=== PATIENT | male | born 1955 | race Caucasian/White ===

== ENCOUNTER → 2017-04-26 | Outpatient (CLI) | payer OTHER ==
[~2017-04-26] MED LIST: ASPEC81 PO; HYDC25 PO; METO25TA3 PO; PRLSR20 PO
[2017-04-26 18:08] LABS: BLOOD UREA NITROGEN 8 mg/dl (7-18); BUN/CREATININE RATIO 8.1 (10-20); CALCIUM 9.6 mg/dl (8.5-10.1); CARBON DIOXIDE 28 mmol/L (21-32); CHLORIDE 106 mmol/L (98-107); CREATININE 0.99 mg/dl (0.60-1.40); GLUCOSE 125 mg/dl (70-99); POTASSIUM 3.4 mmol/L (3.5-5.1); SODIUM 142 mmol/L (136-145)
[2017-04-26 18:11] LABS: CHOLESTEROL 117 mg/dl (0-200); CHOLESTEROL/HDL RATIO 2.1; HDL CHOLESTEROL 56 mg/dl; LDL CHOLESTEROL CALCULATED 44 mg/dl; TRIGLYCERIDES 87 mg/dl (0-150); VERY LOW DENSITY LIPOPROT CALC 17 mg/dl
== END | disposition home or self-care (01) ==
LOC: C.LABPVFM 15:24
PROVIDERS: ATTEND Nurse Practitioner
DX: E78.5 Hyperlipidemia, unspecified (principal); I10 Essential (primary) hypertension

== ENCOUNTER → 2018-02-07 | Outpatient (CLI) | payer OTHER ==
[2018-02-07 17:41] LABS: ALBUMIN 3.8 gm/dl (3.4-5.0); ALT/SGPT 33 U/L (12-78); AST/SGOT 24 U/L (15-37); BLOOD UREA NITROGEN 12 mg/dl (7-18); CALCIUM 9.3 mg/dl (8.5-10.1); CARBON DIOXIDE 29 mmol/L (21-32); CREATININE 1.07 mg/dl (0.60-1.40); GLUCOSE 87 mg/dl (70-99); POTASSIUM 3.7 mmol/L (3.5-5.1); SODIUM 135 mmol/L (136-145)
[2018-02-07 17:44] LABS: ALKALINE PHOSPHATASE 75 U/L (45-117); CHOLESTEROL 135 mg/dl (0-200); LDL CHOLESTEROL CALCULATED 58 mg/dl; TOTAL PROTEIN 7.7 gm/dl (6.4-8.2)
== END | disposition home or self-care (01) ==
LOC: C.LABPVFM 13:32
PROVIDERS: ATTEND Nurse Practitioner
DX: E78.5 Hyperlipidemia, unspecified (principal); K76.0 Fatty (change of) liver, not elsewhere classified; R74.0 Nonspecific elevation of levels of transaminase and lactic acid dehydrogenase [LDH]

== ENCOUNTER 2025-06-19 02:44 | Inpatient (IN) ==
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
[2025-06-19] MEDS: ACETAMINOPHEN 1,000 MG/100 ML VIAL IV STA (03:45)
[2025-06-19] MEDS: FAMOTIDINE 20MG IV PUSH 20 MG/5 ML SYR IV STA (03:46)
[2025-06-19] MEDS: SODIUM CHLORIDE 0.9% 1,000 ML IV ONE (03:46)
[2025-06-19] MEDS: ONDANSETRON INJ 2 MG/ML 2 ML VIAL IV STA (03:46)
--- NOTE | 2025-06-19 04:14 | XRay Report ---
EXAM: XR chest 1V portable CLINICAL HISTORY: abd pain TECHNIQUE: Radiograph of chest was acquired. COMPARISON: and CT dated 02/24/2025 FINDINGS: Interval stable right basal atelectasis band- seen in CT dated Feb 24 2025 Rest of the lungs are clear and well-expanded with no pulmonary infiltrate or pleural effusion. The cardiomediastinal silhouette is within normal limits. No acute osseous abnormality. IMPRESSION: 1. No acute cardiopulmonary disease. 2. Interval stable right basal atelectasis band- seen in CT dated Feb 24 2025 3. No new findings Electronically signed by Haile Prado 06-19-2025 04:14 AM
[2025-06-19 04:18] LABS: Hematocrit (blood only) 44.4 % (42.0-52.0); Hemoglobin 15.2 g/dl (14.0-18.0); Mean Corpuscular Hemoglobin 30.5 pg (25.0-34.0); Mean Corpuscular Volume 89.2 fL (80.0-100.0); Platelet Count 220 K/uL (130-400); RDW Standard Deviation 43.6 fL (36.4-46.3); Red Blood Count 4.98 M/uL (4.70-6.10); White Blood Count 12.42 K/ul (4.8-10.8)
[2025-06-19 04:46] LABS: Immature Granulocytes # (auto) 0.04 K/uL (0.01-0.20); Immature Granulocytes % (auto) 0.3 %
[2025-06-19 04:53] LABS: INR 1.0 (0.9-1.1); Prothrombin Time 11.3 Seconds (9.0-12.0)
[2025-06-19 04:55] LABS: Alanine Aminotransferase 138.0 U/L (7-52); Alkaline Phosphatase 116.0 U/L (34-104); Blood Urea Nitrogen 25.0 mg/dl (6-23); Calcium 9.6 mg/dl (8.6-10.3); Carbon Dioxide 23.0 mmol/L (21-32); Chloride 102.0 mmol/L (98-107); Creatinine Clr Calc Pharmacy 57.1 ml/min
[2025-06-19 05:15] LABS: Anion Gap 11.0 (3-11); Bilirubin,Total 3.5 mg/dl (0.2-1.0); Potassium 3.7 mmol/L (3.5-5.1); Sodium 136.0 mmol/L (136-145)
[2025-06-19] MEDS: DICYCLOMINE HCL 10 MG/ML 2 ML AMP/VIAL IM ONE (05:17)
[2025-06-19 05:21] LABS: Albumin Globulin Ratio 1.1 (0.9-2); Globulin 3.8 gm/dl (2.5-4.0); Glucose 137.0 mg/dl (70-99(Fasting)); Lipase 20.0 U/L (11-82); Total Protein 7.9 gm/dl (6.0-8.3)
--- NOTE | 2025-06-19 06:01 | CT Scan Report ---
EXAM: CT abd pelvis wo con CLINICAL HISTORY: abd pain, n/v TECHNIQUE: Contiguous axial images were obtained from the level of the diaphragm to the pubic symphysis without intravenous or oral contrast. Coronal and sagittal reconstructions were likewise performed and indicated to increase the sensitivity for detecting clinically relevant pathology. CT scan was performed according to ALARA (as low as reasonable achievable). COMPARISON: None. FINDINGS: The visualized lung bases are clear. Evaluation of the abdominal and pelvic visceral organs is limited without intravenous contrast. The unenhanced liver, spleen, pancreas, and adrenal glands are grossly unremarkable. The gallbladder is grossly distended without obvious radio-opaque calculus - USG correlation suggested . The kidneys are normal in size and attenuation without obvious calcification. There is no hydronephrosis Mild bilateral perinephric fat stranding. The ureters are normal in caliber. The urinary bladder is normal in contour. Pelvic viscera are grossly unremarkable. No adenopathy or fluid collections are seen. No evidence of focal or diffuse bowel wall thickening or evidence of bowel obstruction is seen. Multiple small uncomplicated sigmoid colonic diverticulosis. Diffuse atherosclerotic calcification is noted involving aorta iliac arteries. The aorta is normal in caliber. No aggressive appearing osseous lesions are identified. IMPRESSION: 1. Mild bilateral perinephric fat stranding. 2. Multiple small uncomplicated sigmoid colonic diverticulosis. 3. The gallbladder is grossly distended without obvious radio-opaque calculus - USG correlation suggested Electronically signed by Haile Prado 06-19-2025 06:01 AM
[2025-06-19] MEDS: MoRPHine SULFATE 10 MG/ML CARP/VIAL IV STA (06:38)
[2025-06-19] MEDS: METOCLOPRAMIDE HCL INJ 5 MG/ML 2 ML VIAL IV ONE (06:38)
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
[2025-06-19] MEDS ORDERED: cefTRIAXone SODIUM 1,000 MG/50 ML BAG IV SCH (07:30)
[2025-06-19] MEDS: LACTATED RINGER'S 1,000 ML IV SCH (08:40)
--- NOTE | 2025-06-19 09:04 | Magnetic Resonance Report ---
MRCP CLINICAL HISTORY: Generalized abdominal pain. Elevated hepatic transaminases. COMPARISON STUDY: Abdominal CT dated 06/19/2025. TECHNIQUE: Abdominal MRCP is performed utilizing various T2-weighted sequences in the axial and coron al planes. 3-D reformats were created and assessed. Diffusion-weighted imaging was utilized. IV contr ast was not administered for this examination. FINDINGS: The gallbladder is distended and contains numerous layering stones. The gallbladder wall is mildly th ickened and there is pericholecystic inflammation. Findings are consistent with acute cholecystitis. There is [id number] intrahepatic biliary duct dilatation. The common bile duct is dilated, joshua uring up to 1.6 cm diameter. There are numerous stones in the distal common bile duct which measure u p to 8 mm. The pancreatic duct is normal in caliber. The unenhanced liver, spleen, pancreas, adrenal glands, and kidneys are grossly unremarkable. The abd ominal aorta is normal in caliber. Imaged portions of the bowel show no evidence of obstruction. Ther e is no upper abdominal lymphadenopathy. No ascites is seen. There is a small hiatal hernia. The hear t is normal in size and without pericardial effusion. No pleural effusion is identified. There is no evidence of destructive bony lesion. IMPRESSION: Cholelithiasis and choledocholithiasis with evidence of acute cholecystitis. Electronically signed by: Randall Wheeler M.D. 06/19/2025 9:03 AM
[2025-06-19] MEDS: cefTRIAXone SODIUM 2,000 MG/50 ML BAG IV SCH (09:45)
[2025-06-19] MEDS: metroNIDAZOLE 500 MG/100 ML BAG IV SCH (09:45)
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
[2025-06-19 10:42] LABS: Hematocrit (blood only) 38.6 % (42.0-52.0); Hemoglobin 13.2 g/dl (14.0-18.0); Mean Corpuscular Hemoglobin 30.3 pg (25.0-34.0); Mean Corpuscular Volume 88.5 fL (80.0-100.0); Platelet Count 193 K/uL (130-400); RDW Standard Deviation 43.8 fL (36.4-46.3); Red Blood Count 4.36 M/uL (4.70-6.10); White Blood Count 16.87 K/ul (4.8-10.8)
[2025-06-19 11:02] LABS: Alanine Aminotransferase 135.0 U/L (7-52); Albumin Globulin Ratio 1.2 (0.9-2); Alkaline Phosphatase 97.0 U/L (34-104); Anion Gap 7.0 (3-11); Bilirubin,Total 5.5 mg/dl (0.2-1.0); Blood Urea Nitrogen 26.0 mg/dl (6-23); Calcium 9.2 mg/dl (8.6-10.3); Carbon Dioxide 26.0 mmol/L (21-32); Chloride 104.0 mmol/L (98-107); Creatinine Clr Calc Pharmacy 56.3 ml/min; Globulin 3.1 gm/dl (2.5-4.0); Glucose 133.0 mg/dl (70-99(Fasting)); Potassium 3.9 mmol/L (3.5-5.1); Sodium 137.0 mmol/L (136-145); Total Protein 6.8 gm/dl (6.0-8.3)
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
[2025-06-19 13:31] LABS: Appearance Urine Clear (Clear); Bacteria Urine Automated None Seen (None Seen); Glucose Urine UA Negative (Negative); RBC Urine Automated 0-2 /hpf (0-2); WBC Urine Automated 0-5 /hpf (0-5)
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
--- NOTE | 2025-06-19 14:18 | Electrocardiogram Report ---
Test Reason : Blood Pressure : */* mmHG Vent. Rate : 77 BPM Atrial Rate : 77 BPM P-R Int : 150 ms QRS Dur : 78 ms QT Int : 384 ms P-R-T Axes : -24 -9 -26 degrees QTcB Int : 434 ms Normal sinus rhythm Inferior infarct , age undetermined Abnormal ECG When compared with ECG of 24-Oct-2018 01:15, Inferior infarct is now Present T wave inversion now evident in Inferior leads Confirmed by Marlo Abarca ([id number]) on 06/19/2025 2:18:45 PM Referred By: REFERRED SELF Confirmed By: Marlo Abarca
[2025-06-19] MEDS ORDERED: PROPOFOL IV EMULSION 10 MG/ML 20 ML VIAL IV ONE (16:46)
[2025-06-19] MEDS ORDERED: LIDOCAINE 2% 2 ML VIAL/AMP(20MG/ML) INFIL ONE (16:46)
[2025-06-19] MEDS ORDERED: ONDANSETRON INJ 2 MG/ML 2 ML VIAL ONE (16:46)
[2025-06-19] MEDS ORDERED: SUCCINYLCHOLINE CHLORIDE 20 MG/ML 10 ML VIAL IV ONE (16:46)
[2025-06-19] MEDS ORDERED: ATROPINE SULFATE 0.1 MG/ML 10ML SYR IV PRN (17:04)
[2025-06-19] MEDS ORDERED: ONDANSETRON INJ 2 MG/ML 2 ML VIAL IV PRN (17:04)
[2025-06-19] MEDS ORDERED: PROMETHAZINE HCL 6.25 MG in SODIUM CHLORIDE 0.9% 50 ML IV PRN (17:04)
[2025-06-19] MEDS ORDERED: ePHEDrine sulfate 50 MG/5 ML SYR ONE (18:34)
[2025-06-19] MEDS ORDERED: PHENYLEPHRINE 100MCG/ML 5ML SYR ONE (18:34)
[2025-06-19] MEDS ORDERED: ROCURONIUM BROMIDE 10 MG/ML 5 ML VIAL IV ONE (18:34)
[2025-06-19] MEDS ORDERED: SUGAMMADEX SODIUM 200 MG/2 ML VIAL IV ONE (18:34)
--- NOTE | 2025-06-19 18:43 | Communication Note ---
Date of Service: June 19, 2025 ERCP sphincterotomy and stone extraction Ulcerated the papilla. Draining bile. Initial cannulation markedly dilated common bile duct. Multiple filling defects within the common hepatic duct. Biliary sphincterotomy undertaken through a long intraduodenal bile duct. Once flush of bile was seen further sphincterotomy ceased. Based on the size of the filling defects we felt that additional balloon sphincterotomy would facilitate extraction the duct was dilated to 1 cm with a balloon dilator. An 8-15 balloon was inserted into the proximal biliary tree and the duct was swept. At least 4 to 5 stones were extracted from the biliary system. The duct then was swept on 3 more occasions with extraction of mostly pus and some debris. Duct was clear and draining well opposed. Patient tolerated procedure well. Multiple common duct stones. Dilated biliary system. Pus in the biliary system consistent with cholangitis. Clear liquids today. Continue IV antibiotics. Labs in the AM. Cholecystectomy with timing per surgery
[2025-06-19] MEDS: INDOMETHACIN 50 MG SUPP PR ONE ×2 (18:50→21:26)
--- NOTE | 2025-06-19 18:50 | GI REPORT ---
Patient: АЛЕКСАНДР FIGUEROA : 1955 Sex at : Male Age: 69 Years Procedure: ERCP Date: 06/19/2025 Attending Physician: Eleuterio Knox MD Referring MD: Referred Self Indications: - Bile duct stone(s) - Elevated liver enzymes Medications: - General Anesthesia - Indomethacin 100 mg NH Complications: - No immediate complications. Estimated Blood Loss: - Estimated blood loss was minimal. Procedure: - The ercp scope was introduced through the mouth and advanced to the duodenum and used to inject contrast into the bile duct. - The ERCP was accomplished without difficulty. - The patient tolerated the procedure well. Findings: - Scope advanced fairly easily to the second part of the duodenum and the papilla appeared ulcerated. Initial cannulation decannulation of common bile duct. Long intra duodenal biliary portion. Large stones. Sphincterotomy extended in the 11 o'clock position until gush of bile further cutting ceased after that. Based on stone size the decision was made to do a 1 cm biliary balloon sphincterotomy to facilitate stone extraction. Once this was completed a 8 to 15 mm extracting balloon was inserted into the biliary system up to the biliary bifurcation. Dye was injected multiple filling defects present. Duct was swept extracting 4 to 5 stone fragments to 8 mm plus. The balloon then was inserted back to the bifurcation of duct was swept 3 more times with extraction of pus and some debris no further stone fragments duct appeared clear and draining post. No significant bleeding Impression: - Scope advanced fairly easily to the second part of the duodenum and the papilla appeared ulcerated. Initial cannulation decannulation of common bile duct. Long intra duodenal biliary portion. Large stones. Sphincterotomy extended in the 11 o'clock position until gush of bile further cutting ceased after that. Based on stone size the decision was made to do a 1 cm biliary balloon sphincterotomy to facilitate stone extraction. Once this was completed a 8 to 15 mm extracting balloon was inserted into the biliary system up to the biliary bifurcation. Dye was injected multiple filling defects present. Duct was swept extracting 4 to 5 stone fragments to 8 mm plus. The balloon then was inserted back to the bifurcation of duct was swept 3 more times with extraction of pus and some debris no further stone fragments duct appeared clear and draining post. No significant bleeding Recommendation: - Clear liquids today. - Check labs in AM. - Continue IV ceftriaxone. - Cystectomy and timing per surgery Procedure Code(s): - 94221, Endoscopic retrograde cholangiopancreatography (ERCP); diagnostic, including collection of specimen(s) by brushing or washing, when performed (separate procedure) Diagnosis Code(s): - K80.50, Calculus of bile duct without cholangitis or cholecystitis without obstruction - R74.8, Abnormal levels of other serum enzymes CPT(R) - 2022 copyright [employer]. All Rights Reserved. The CPT codes, CCI edits and ICD codes generated are intended as suggestions and were generated based on input data. These codes are preliminary and upon nut sheller machine operator review may be revised to meet current compliance and payer requirements. The provider is responsible for the final determination of appropriate codes, and modifiers. Eleuterio Knox MD This document has been electronically signed. Note Initiated:06/19/2025 Note Completed:06/19/2025 6:49 PM [id number]
--- NOTE | 2025-06-19 19:35 | Anesthesiology Progress Note ---
Date of Service June 19, 2025 Anesthesia Post Procedure Vital Signs Vital Signs: Temp Pulse Pulse Pulse Resp BP BP 06/19/25 19:25 36.7 C 89 18 114/73 06/19/25 19:15 92 H 20 111/81 06/19/25 19:05 92 H 20 108/72 06/19/25 18:58 37.3 C 96 H 12 108/72 06/19/25 16:29 37.2 C 94 H 22 158/89 H 06/19/25 14:01 36.8 C 87 16 143/83 H 06/19/25 13:07 93 H 16 06/19/25 10:21 36.8 C 20 06/19/25 10:03 06/19/25 08:44 99 H 20 06/19/25 07:38 97 H 18 06/19/25 04:25 85 06/19/25 02:47 37 C 83 23 146/90 H BP Pulse Ox O2 Del Method O2 Flow Rate 06/19/25 19:25 96 Room Air 06/19/25 19:15 97 Room Air 06/19/25 19:05 100 Room Air 06/19/25 18:58 100 Oxymask 4 06/19/25 16:29 94 Room Air 06/19/25 14:01 97 Room Air 06/19/25 13:07 128/79 98 Room Air 06/19/25 10:21 98 Room Air 06/19/25 10:03 Room Air 06/19/25 08:44 106/65 96 Room Air 06/19/25 07:38 113/75 93 Room Air 06/19/25 04:25 06/19/25 02:47 98 Room Air Pain Intensity Bilateral Abdomen: Pain Intensity: 3 Transfer of Care Handoff Completed per policy Notes Mental Status: alert / awake / arousable Patient Amnestic to Procedure: Yes Nausea / Vomiting: adequately controlled Pain: adequately controlled Airway Patency, RR, SpO2: stable & adequate BP & HR: stable & adequate Hydration State: stable & adequate Anesthetic Complications: no major complications apparent
[2025-06-20 07:19] LABS: Hematocrit (blood only) 33.6 % (42.0-52.0); Hemoglobin 11.5 g/dl (14.0-18.0); Mean Corpuscular Hemoglobin 30.2 pg (25.0-34.0); Mean Corpuscular Volume 88.2 fL (80.0-100.0); Platelet Count 156 K/uL (130-400); RDW Standard Deviation 44.1 fL (36.4-46.3); Red Blood Count 3.81 M/uL (4.70-6.10); White Blood Count 10.60 K/ul (4.8-10.8)
[2025-06-20 07:37] LABS: Alanine Aminotransferase 96.0 U/L (7-52); Albumin Globulin Ratio 1.1 (0.9-2); Alkaline Phosphatase 93.0 U/L (34-104); Anion Gap 8.0 (3-11); Bilirubin,Total 6.1 mg/dl (0.2-1.0); Blood Urea Nitrogen 32.0 mg/dl (6-23); Calcium 8.4 mg/dl (8.6-10.3); Carbon Dioxide 26.0 mmol/L (21-32); Chloride 106.0 mmol/L (98-107); Creatinine Clr Calc Pharmacy 51.3 ml/min; Globulin 2.7 gm/dl (2.5-4.0); Glucose 107.0 mg/dl (70-99(Fasting)); Lipase 11.0 U/L (11-82); Potassium 3.6 mmol/L (3.5-5.1); Sodium 140.0 mmol/L (136-145); Total Protein 5.8 gm/dl (6.0-8.3)
--- NOTE | 2025-06-20 07:37 | Fluoroscopy Report ---
INTRAOPERATIVE RADIOGRAPHS CLINICAL HISTORY: ERCP procedure. Choledocholithiasis. Fluoro time: 3 minutes 18 seconds Ka,r: 68.62 mGy FINDINGS: 4 spot fluoroscopic views of the right upper quadrant from an ERCP procedure are correlated with MRCP dated 06/19/2025. Contrast within the biliary tree shows intra and extrahepatic biliary sunni orquidea dilatation. Filling defects in the common bile duct indicate choledocholithiasis. A balloon sweep of the duct was performed. IMPRESSION: Intraoperative ERCP images as above. See operative report for detailed findings. Electronically signed by: Randall Wheeler M.D. 06/20/2025 7:36 AM
--- NOTE | 2025-06-20 08:01 | Surgery Progress Note ---
Date of Service June 20, 2025 Assessment & Plan (1) Choledocholithiasis: (2) Transaminitis: Plan Elevated bilirubin trended up this am. Remaining liver enzymes trending down. Leukocytosis resolved. Minimal occasional pain RUQ this am. 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 Plan for cholecystectomy today. The consent was obtained yesterday and is on the patient's chart Continue medical management Continue NPO while awaiting surgery today with IVF hydration Hold ASA and chemical DVT ppx Continue abx, on Ceftriaxone Admission and Anticipated Discharge Date Admission Date: June 19, 2025 Subjective Patient seen this am. S/P ERCP with GI last evening with stone and pus extraction, sphincterotomy. Today he has no major complaints. Is NPO Physical Exam Constitutional: + obese; not ill appearing, not in distr ess and not diaphoretic Respiratory: normal respiratory effort; no respiratory distress, no labored breathing and does not use accessory muscles Gastrointestinal (Abdomen): Percussion/Palpation: + abdomen tender (minimal RUQ) and abdomen soft; no guarding Skin: jaundiced, warm, dry Results & Data Vital Signs (Past 12 Hours) Vital Signs Temp Pulse Resp BP BP Pulse Ox O2 Del Method 06/20/25 07:40 36.9 C 79 18 122/71 97 Room Air 06/20/25 03:20 36.8 C 91 H 18 108/71 93 Room Air 06/19/25 23:00 37.0 C 83 18 104/69 95 Room Air 06/19/25 21:30 36.9 C 87 20 110/72 95 Room Air 06/19/25 20:30 36.2 C L 88 20 126/80 96 Room Air 06/19/25 20:02 37.0 C 89 18 136/85 96 Room Air Results Complete Blood Count Results: RBC 3.81 M/uL (4.70-6.10) L 06/20/25 WBC 10.60 K/ul (4.8-10.8) 06/20/25 Hgb 11.5 g/dl (14.0-18.0) L 06/20/25 Hct 33.6 % (42.0-52.0) L 06/20/25 Plt Count 156 K/uL (130-400) 06/20/25 Results CMP Results: Sodium 140 mmol/L (136-145) 06/20/25 Potassium 3.6 mmol/L (3.5-5.1) 06/20/25 Chloride 106 mmol/L (98-107) 06/20/25 Carbon Dioxide 26 mmol/L (21-32) 06/20/25 Anion Gap 8 (3-11) 06/20/25 BUN 32 mg/dl (6-23) H 06/20/25 Creatinine 1.60 mg/dl (0.6-1.4) H 06/20/25 eGFR 46.06 06/20/25 Est GFR ( Amer) 74.8 ml/min 06/03/24 Est GFR (Non-Af Amer) 64.6 ml/min 06/03/24 BUN/Creatinine Ratio 20.0 (10-20) 06/20/25 Glucose 107 mg/dl (70-99(Fasting)) H 06/20/25 Calcium 8.4 mg/dl (8.6-10.3) L 06/20/25 Total Bilirubin 6.1 mg/dl (0.2-1.0) H 06/20/25 Direct Bilirubin 2.1 mg/dl (0-0.2) H 06/19/25 AST 79 U/L (13-39) H 06/20/25 ALT 96 U/L (7-52) H 06/20/25 Alkaline Phosphatase 93 U/L (34-104) 06/20/25 Total Protein 5.8 gm/dl (6.0-8.3) L 06/20/25 Albumin 3.1 gm/dl (3.4-5.0) L 06/20/25 Globulin 2.7 gm/dl (2.5-4.0) 06/20/25 Albumin/Globulin Ratio 1.1 (0.9-2) 06/20/25 GGT 43 U/L (3-70) 02/07/18 PG Care Time/CCT Total # of Minutes Spent Total Time Spent with Patient: Total time spent is greater than 50% in coordination of care (as documented) at patient's floor/unit and/or counseling patient: Coding Level of Care Code 03920 SUB INP/OBS CARE 11/22MIN Diagnoses Choledocholithiasis K80.50 Transaminitis R74.01
[2025-06-20] MEDS: ACETAMINOPHEN 1,000 MG/100 ML VIAL IV STA (08:39)
[2025-06-20] MEDS ORDERED: ONDANSETRON INJ 2 MG/ML 2 ML VIAL ONE (09:16)
[2025-06-20] MEDS ORDERED: MIDAZOLAM HCL 1 MG/ML 2ML VIAL ONE (09:16)
[2025-06-20] MEDS ORDERED: NEOSTIGMINE METHYLSULFATE 1 MG/ML 10ML VIAL ONE (09:16)
[2025-06-20] MEDS ORDERED: LIDOCAINE 2% 2 ML VIAL/AMP(20MG/ML) INFIL ONE (09:16)
[2025-06-20] MEDS ORDERED: GLYCOPYRROLATE 0.2 MG/ML VIAL ONE (09:16)
[2025-06-20] MEDS ORDERED: ROCURONIUM BROMIDE 10 MG/ML 5 ML VIAL IV ONE (09:16)
[2025-06-20] MEDS ORDERED: DEXAMETHASONE SOD INJ 4 MG/ML VIAL ONE (09:16)
[2025-06-20] MEDS ORDERED: PROPOFOL IV EMULSION 10 MG/ML 20 ML VIAL IV ONE (09:16)
[2025-06-20] MEDS ORDERED: HYDROmorphone INJ 1 MG/ML SYRINGE IV PRN (10:26)
[2025-06-20] MEDS ORDERED: ONDANSETRON INJ 2 MG/ML 2 ML VIAL IV PRN (10:26)
[2025-06-20] MEDS ORDERED: ATROPINE SULFATE 0.1 MG/ML 10ML SYR IV PRN (10:26)
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
[2025-06-20] MEDS ORDERED: SUGAMMADEX SODIUM 200 MG/2 ML VIAL IV ONE (11:19)
--- NOTE | 2025-06-20 11:33 | Hospitalist Progress Note ---
Date of Service June 20, 2025 Assessment & Plan (1) Transaminitis: (2) Upper abdominal pain: (3) History of lung cancer: (4) GERD (gastroesophageal reflux disease): Plan 69 male hypertension hyperlipidemia COPD lung CA presents with nausea vomiting abdominal pain chills shortly after eating sausage at a local fair. No diarrhea. No fevers chills. No shortness of breath lightheadedness. No sick contacts or travel. He feels he may have food poisoning. On admission he is noted to have leukocytosis WBC 12.4 with a left shift. No signs of sepsis. Lipase WNL. LFTs concerning for obstructive transaminitis pattern.CT abdomen pelvis demonstrates distended gallbladder without clear stones. He received supportive care with IV fluids and antiemetics. ED physician discussed with GI on-call who requested MRCP and admission for observation and ERCP. Abdominal pain secondary to choledocholithiasis Supportive care N.p.o. IV fluids IV Rocephin Flagyl MRCP With choledocholithiasis and cholecystitis Status post ERCP stone retrieval Intraoperatively notable for pus Acute cholecystitis Surgery Planning OR Transaminitis suspect obstructive Avoid hepatotoxic meds Trend LFTs Hypertension Home medications Hyperlipidemia Home medications COPD Home medications DVT prophylaxis SCDs. Add chemoprophylaxis postprocedure Full code Disposition TBD Admission and Anticipated Discharge Date Admission Date: June 19, 2025 Subjective Doing very well no abdominal pain nausea fevers chills or any other symptoms Review of Systems Review of Systems: Negative except as in HPI Physical Exam Physical Exam: GENERAL: Awake, alert, in no distress HENT: Normocephalic, atraumatic. Oropharynx with dry mucous membranes and otherwise unremarkable. EYES: Normal conjunctiva. Sclera non-icteric. NECK: Supple. No nuchal rigidity. FROM. No JVD. RESPIRATORY: Clear to auscultation. CARDIAC: Regular rate, normal rhythm. Extremities warm and well perfused. Pulses equal. ABDOMEN: Soft, non-distended. Mild epigastric tenderness without guarding or rebound. Negative Tam sign. MUSCULOSKELETAL: Chest examination reveals no tenderness. The back is symmetrical on inspection without obvious abnormality. There is no CVA tenderness to palpation. No joint edema. LOWER EXTREMITIES: Calves are equal size bilaterally and non-tender. No edema. No discoloration. NEURO: Normal sensorium. No sensory or motor deficits noted. SKIN: No rash or jaundice noted. Results & Data Results & Data Vital Signs (Past 12 Hours) Vital Signs Temp Pulse Resp BP BP Pulse Ox O2 Del Method 06/20/25 07:40 36.9 C 79 18 122/71 97 Room Air 06/20/25 03:20 36.8 C 91 H 18 108/71 93 Room Air PG Care Time/CCT Total # of Minutes Spent Total Time Spent with Patient: Total time spent is greater than 50% in coordination of care (as documented) at patient's floor/unit and/or counseling patient: Coding Level of Care Code 54016 SUB INP/OBS CARE 2/35MIN Diagnoses Transaminitis R74.01 Upper abdominal pain R10.10 History of lung cancer Z85.118 Gastroesophageal reflux disease without esophagitis K21.9 Esophagitis presence: without esophagitis (4) GERD (gastroesophageal reflux disease) Esophagitis presence: without esophagitis Qualified Code(s): K21.9 - Gastro- esophageal reflux disease without esophagitis
--- NOTE | 2025-06-20 11:45 | Gastroenterology Progress Note ---
Date of Service June 20, 2025 Assessment & Plan (1) Choledocholithiasis: Plan: Post ERCP and stone extraction. In the OR at present getting a cholecystectomy. Recheck labs tomorrow. Admission and Anticipated Discharge Date Admission Date: June 19, 2025 Subjective Choledocholithiasis, cholangitis Day 1 post ERCP. Liver tests trending down. Bili about the same. I believe this reflects more prolonged obstruction based on number of stones, large duct and potential biliary fistula identified at ERCP .should come down in the next day or so. White count normalized. Temperature normal. Went to see patient currently in the OR. Will recheck LFTs tomorrow. Results & Data Results & Data Vital Signs (Past 12 Hours) Vital Signs Temp Pulse Resp BP BP Pulse Ox O2 Del Method 06/20/25 07:40 36.9 C 79 18 122/71 97 Room Air 06/20/25 03:20 36.8 C 91 H 18 108/71 93 Room Air PG Care Time/CCT Total # of Minutes Spent Total Time Spent with Patient: Total time spent is greater than 50% in coordination of care (as documented) at patient's floor/unit and/or counseling patient: Coding Level of Care Code None Diagnoses Choledocholithiasis K80.50
[2025-06-20] MEDS: BUPIVACAINE/EPINEPHRINE 0.5% MPF 1:200,000 30 ML VIAL ONE (12:19)
--- NOTE | 2025-06-20 13:04 | Operative Report ---
PG Post Operative Report Pre & Post Diagnosis Operation Date: 06/20/25 07:30 Pre-Op Diagnosis: Cholecystitis Umbilical Hernia Post-Op Diagnosis: Cholecystitis Umbilical Hernia I identified the patient and participated in the time-out.: Yes Procedure Operation Date: 06/20/25 07:30 Actual Procedures p Laparoscopic Cholecystectomy, Umbilical Hernia Repair(Not Applicable) - John Terrell DO Surgeon John Terrell DO Hot Worker no surgical nurse practitioner Estimated Blood Loss 15 Findings See Below Adhesions to the the fundus of the GB. Stones in an enlarged cystic duct. Specimens Gallbladder Anesthesia Type General Complications None Indications choledocholithiasis with elevated transaminases and cholelithiasis Description of Procedure The patient was brought back to the operating room and placed on the operating table in supine position. He was connected to cardiac and oxygen monitoring, supplemental O2 was provided and SCDs were applied to b/l LE. The patient was administered general anesthesia and a secure airway was established. The abdomen was prepped and draped in typical sterile fashion and a time out was conducted. Local anesthetic cutaneous tissues prior to incisions and all incisions were made with an 11 blade. Intra-abdominal access was gained by making an incision at the supraumbilical fold which provided access to an umbilical hernia. An umbilical hernia was present and was used for an 11 port where CO2 insufflation was initiated and established local pressure 15 mmHg. 3 additional 5 mm trocars were inserted at the epigastric region and right subcostal margin under direct visualization. The OR table was positioned in reverse Trendelenburg and left side down. Omentum was noted adhesed to the liver edge and this was taken down using blunt dissection. There was some bleeding. Several layers of omentum were lysed to expose the gallbladder. The gallbladder was grasped at the fundus and was very very enlarged. Wall was soft but the gallbladder was very protuberant and difficult to handle. The infundibulum of the gallbladder was heavily encased in soft fatty tissue that was dissected using alternating blunt and cautery dissection. This tissue was very bloody. The cystic triangle was eventually exposed. The cystic artery was controlled with two 5 mm clips proximally and 1 distally. The artery was transected with a laparoscopic EndoShears. The cystic duct was very wide and too large to be ligated with 5 mm clips so the 11 mm umbilical trocar was upgraded to a 12 mm trocar and a large clip exercise physiology professor was used to also ligate the cystic artery. The cystic artery was then transected with laparoscopic EndoShears. The gallbladder was cauterized from the liver edge. Bleeding along the way was controlled using cautery. The gallbladder was placed in an Endo Catch bag and removed from the umbilical incision. A Santos Ortega with 0 Vicryl suture was used to close the umbilical hernia. An additional 0 Vicryl stitch on a UR needle was used to close this area as well. The liver bed was examined for hemostasis. There was no bleeding. The area was copiously irrigated and suctioned. All instruments and trocars were removed. CO2 insufflation had been discontinued and excess pneumoperitoneum was evacuated. The skin at all incisions was approximated using 4-0 Vicryl suture. The abdomen was wiped clean with a saline soaked lap pad and dried. The epigastric and subcostal incisions were further sealed with Dermabond. The umbilical incision was sealed with Steri-Strips and then dressed with a cottonball and dry gauze secured in place with tape. The patient tolerated the procedure well. He was awakened from anesthesia, secure airway was removed and he was transferred to recovery in stable condition I attest to the content of the Intraoperative Record and any orders documented therein. Any exceptions are noted below.
[2025-06-20] MEDS: ONDANSETRON INJ 2 MG/ML 2 ML VIAL IV PRN (13:29)
--- NOTE | 2025-06-20 14:34 | Anesthesiology Progress Note ---
Date of Service June 20, 2025 Anesthesia Post Procedure Vital Signs Vital Signs: Temp Pulse Pulse Resp BP BP Pulse Ox 06/20/25 13:50 36.8 C 99 H 18 145/79 H 96 06/20/25 13:20 36.5 C 96 H 18 145/88 H 95 06/20/25 13:10 93 H 22 141/83 H 95 06/20/25 13:00 94 H 20 144/86 H 98 06/20/25 12:50 90 18 137/84 100 06/20/25 12:40 36.4 C L 99 H 14 128/80 98 06/20/25 07:40 36.9 C 79 18 122/71 97 06/20/25 03:20 36.8 C 91 H 18 108/71 93 06/19/25 23:00 37.0 C 83 18 104/69 95 06/19/25 21:30 36.9 C 87 20 110/72 95 06/19/25 20:30 36.2 C L 88 20 126/80 96 06/19/25 20:02 37.0 C 89 18 136/85 96 06/19/25 19:25 36.7 C 89 18 114/73 96 06/19/25 19:15 92 H 20 111/81 97 06/19/25 19:05 92 H 20 108/72 100 06/19/25 18:58 37.3 C 96 H 12 108/72 100 06/19/25 16:29 37.2 C 94 H 22 158/89 H 94 O2 Del Method O2 Flow Rate 06/20/25 13:50 Room Air 06/20/25 13:20 Room Air 06/20/25 13:10 Room Air 06/20/25 13:00 Oxymask 4 06/20/25 12:50 Oxymask 4 06/20/25 12:40 Oxymask 6 06/20/25 07:40 Room Air 06/20/25 03:20 Room Air 06/19/25 23:00 Room Air 06/19/25 21:30 Room Air 06/19/25 20:30 Room Air 06/19/25 20:02 Room Air 06/19/25 19:25 Room Air 06/19/25 19:15 Room Air 06/19/25 19:05 Room Air 06/19/25 18:58 Oxymask 4 06/19/25 16:29 Room Air Pain Intensity Bilateral Abdomen: Pain Intensity: 3 Transfer of Care Handoff Completed per policy Notes Mental Status: alert / awake / arousable and participated in evaluation Patient Amnestic to Procedure: Yes Nausea / Vomiting: adequately controlled Pain: adequately controlled Airway Patency, RR, SpO2: stable & adequate BP & HR: stable & adequate Hydration State: stable & adequate Anesthetic Complications: no major complications apparent and Pt Satisfied with anesthetic care
[2025-06-20] MEDS: ACETAMINOPHEN 325 MG TAB PO PRN (21:29)
[2025-06-21 04:10] VITALS: RESP 18
--- NOTE | 2025-06-21 05:12 | Surgery Progress Note ---
Date of Service June 21, 2025 Assessment & Plan (1) Choledocholithiasis: Plan: Status post ERCP on 06/19/2025 (postprocedure day #2); status post laparoscopic cholecystectomy on 06/20/2025 (postop day #1): Continue analgesics as needed Continue diet as tolerated Will DC intravenous fluids as patient is tolerating solid food Continue antibiotics in form of Rocephin and Flagyl Increase mobilization as able Check a.m. labs when available If patient remains hospitalized, consider adding chemical DVT prophylaxis providing labs are stable this morning Admission and Anticipated Discharge Date Admission Date: June 19, 2025 Supervising Physician Co-Signing Physician Notes I have seen and examined this patient this am and I agree with this plan. Patient feels as though he is ready to go home. He may be discharged today per surgery if ok with GI, to follow up with me in 2 weeks Subjective Patient is currently resting comfortably in bed. He notes that since his surgery he has some soreness at his incision but otherwise has minimal pain. He says he is tolerating oral intake without nausea or vomiting or exacerbation of abdominal pain. He is urinating without difficulty. Since his surgery he has passed flatus but has not had a bowel movement. Physical Exam Gastrointestinal (Abdomen): Abdomen is rotund with minimal distention. Surgical incisions are clean, dry, and intact. Patient has expected tenderness near surgical incisions but abdomen is otherwise benign. Results & Data Vital Signs (Past 12 Hours) Vital Signs Temp Pulse Resp BP Pulse Ox O2 Del Method 06/21/25 04:09 36.8 C 88 18 124/68 97 Room Air 06/20/25 22:45 37.5 C 96 H 20 145/83 H 95 Room Air 06/20/25 21:30 Room Air 06/20/25 19:22 37.5 C 90 20 136/78 94 Room Air PG Care Time/CCT Total # of Minutes Spent Total Time Spent with Patient: Total time spent is greater than 50% in coordination of care (as documented) at patient's floor/unit and/or counseling patient: Coding Level of Care Code 95454 Post Operative Follow-Up Diagnoses Choledocholithiasis K80.50
[2025-06-21 06:50] LABS: Hematocrit (blood only) 33.2 % (42.0-52.0); Hemoglobin 11.2 g/dl (14.0-18.0); Mean Corpuscular Hemoglobin 30.1 pg (25.0-34.0); Mean Corpuscular Volume 89.2 fL (80.0-100.0); Platelet Count 171 K/uL (130-400); RDW Standard Deviation 44.0 fL (36.4-46.3); Red Blood Count 3.72 M/uL (4.70-6.10); White Blood Count 12.97 K/ul (4.8-10.8)
[2025-06-21 07:19] LABS: Alanine Aminotransferase 78.0 U/L (7-52); Albumin Globulin Ratio 1.1 (0.9-2); Alkaline Phosphatase 105.0 U/L (34-104); Anion Gap 6.0 (3-11); Bilirubin,Total 2.5 mg/dl (0.2-1.0); Blood Urea Nitrogen 31.0 mg/dl (6-23); Calcium 8.7 mg/dl (8.6-10.3); Carbon Dioxide 25.0 mmol/L (21-32); Chloride 106.0 mmol/L (98-107); Creatinine Clr Calc Pharmacy 62.7 ml/min; Globulin 2.9 gm/dl (2.5-4.0); Glucose 137.0 mg/dl (70-99(Fasting)); Potassium 4.1 mmol/L (3.5-5.1); Sodium 137.0 mmol/L (136-145); Total Protein 6.0 gm/dl (6.0-8.3)
--- NOTE | 2025-06-21 09:26 | Gastroenterology Progress Note ---
Date of Service June 21, 2025 Assessment & Plan (1) Choledocholithiasis: Plan: Post ERCP with stone extraction. Enzymes normalizing. Recommend follow-up in 1 to 2 weeks to document they normalize completely. Return if biliary symptoms. GI signed off reconsult as needed Admission and Anticipated Discharge Date Admission Date: June 19, 2025 Subjective Post ERCP, duct stones Liver enzymes decreasing nicely. Patient has pain at the incision though denies any of these typical biliary pain. 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 Discussed the risks of recurrent stones in this large duct. Advised if he develops jaundice fevers chills or his typical recurrent biliary pain he is to return. Recommend following his liver test and normalization Refer back to GI if they remain persistently elevated. Physical Exam Physical Exam: Appears well no acute distress. Abdomen some incision discomfort otherwise benign. Results & Data Results & Data Vital Signs (Past 12 Hours) Vital Signs Temp Pulse Resp BP Pulse Ox O2 Del Method 06/21/25 07:12 36.6 C 83 18 139/81 94 Room Air 06/21/25 04:09 36.8 C 88 18 124/68 97 Room Air 06/20/25 22:45 37.5 C 96 H 20 145/83 H 95 Room Air 06/20/25 21:30 Room Air PG Care Time/CCT Total # of Minutes Spent Total Time Spent with Patient: Total time spent is greater than 50% in coordination of care (as documented) at patient's floor/unit and/or counseling patient: Coding Level of Care Code 32485 SUB INP/OBS CARE 11/22MIN Diagnoses Choledocholithiasis K80.50
--- NOTE | 2025-06-21 10:21 | Hospitalist Progress Note ---
Date of Service June 21, 2025 Assessment & Plan (1) Transaminitis: (2) Upper abdominal pain: (3) History of lung cancer: (4) GERD (gastroesophageal reflux disease): Plan 69 male hypertension hyperlipidemia COPD lung CA presents with nausea vomiting abdominal pain chills shortly after eating sausage at a local fair. No diarrhea. No fevers chills. No shortness of breath lightheadedness. No sick contacts or travel. He feels he may have food poisoning. On admission he is noted to have leukocytosis WBC 12.4 with a left shift. No signs of sepsis. Lipase WNL. LFTs concerning for obstructive transaminitis pattern.CT abdomen pelvis demonstrates distended gallbladder without clear stones. He received supportive care with IV fluids and antiemetics. ED physician discussed with GI on-call who requested MRCP and admission for observation and ERCP. Abdominal pain secondary to choledocholithiasis Supportive care N.p.o. IV fluids IV Rocephin Flagyl MRCP With choledocholithiasis and cholecystitis Status post ERCP stone retrieval Intraoperatively notable for pus Acute cholecystitis Status post lap jamie Postoperative supportive care per surgery and outpatient follow-up Transaminitis suspect obstructive Avoid hepatotoxic meds Trend LFTs Repeat labs outpatient through PCP Hypertension Home medications Hyperlipidemia Home medications COPD Home medications DVT prophylaxis Full code Disposition Discharge home once cleared by surgery Admission and Anticipated Discharge Date Admission Date: June 19, 2025 Subjective Doing very well. Tolerating regular diet. Denies abdominal pain. No fevers chills dyspnea pleuritic or other chest pain. Passing gas no bowel movements. Discussed with RN at bedside Review of Systems Review of Systems: Negative except as in HPI Physical Exam Physical Exam: GENERAL: Awake, alert, in no distress HENT: Normocephalic, atraumatic. Oropharynx with dry mucous membranes and otherwise unremarkable. EYES: Normal conjunctiva. Sclera non-icteric. NECK: Supple. No nuchal rigidity. FROM. No JVD. RESPIRATORY: Clear to auscultation. CARDIAC: Regular rate, normal rhythm. Extremities warm and well perfused. Pulses equal. ABDOMEN: Soft, non-distended. Mild epigastric tenderness without guarding or rebound. Negative Tam sign. MUSCULOSKELETAL: Chest examination reveals no tenderness. The back is symmetri shanti on inspection without obvious abnormality. There is no CVA tenderness to palpation. No joint edema. LOWER EXTREMITIES: Calves are equal size bilaterally and non-tender. No edema. No discoloration. NEURO: Normal sensorium. No sensory or motor deficits noted. SKIN: No rash or jaundice noted. Results & Data Results & Data Vital Signs (Past 12 Hours) Vital Signs Temp Pulse Resp BP Pulse Ox O2 Del Method 06/21/25 07:12 36.6 C 83 18 139/81 94 Room Air 06/21/25 04:09 36.8 C 88 18 124/68 97 Room Air 06/20/25 22:45 37.5 C 96 H 20 145/83 H 95 Room Air PG Care Time/CCT Total # of Minutes Spent Total Time Spent with Patient: Total time spent is greater than 50% in coordination of care (as documented) at patient's floor/unit and/or counseling patient: Coding Level of Care Code 03151 SUB INP/OBS CARE 2/35MIN Diagnoses Transaminitis R74.01 Upper abdominal pain R10.10 History of lung cancer Z85.118 Gastroesophageal reflux disease without esophagitis K21.9 Esophagitis presence: without esophagitis (4) GERD (gastroesophageal reflux disease) Esophagitis presence: without esophagitis Qualified Code(s): K21.9 - Gastro-esophageal reflux disease without esophagitis
[2025-06-21] MEDS: HEPARIN SOD 5,000 UNIT/0.5 ML VIAL SQ SCH (14:10)
[2025-06-21 14:58] VITALS: BP 163/82; PULSE 95; TEMP 99; O2SAT 97
--- NOTE | 2025-06-21 15:16 | Discharge Summary ---
Discharge Summary Date of Service June 21, 2025 RN notified me surgery attending was at bedside and cleared pt he is eager to go understands importance of close f/u and strict return precautions Principal Dx & Hospital Course #1 = Principal Diagnosis (1) Transaminitis: (2) Upper abdominal pain: (3) History of lung cancer: (4) GERD (gastroesophageal reflux disease): Plan 69 male hypertension hyperlipidemia COPD lung CA presents with nausea vomiting abdominal pain chills shortly after eating sausage at a local fair. No diarrhea. No fevers chills. No shortness of breath lightheadedness. No sick contacts or travel. He feels he may have food poisoning. On admission he is noted to have leukocytosis WBC 12.4 with a left shift. No signs of sepsis. Lipase WNL. LFTs concerning for obstructive transaminitis pattern.CT abdomen pelvis demonstrates distended gallbladder without clear stones. He received supportive care with IV fluids and antiemetics. ED physician discussed with GI on-call who requested MRCP and admission for observation and ERCP. Abdominal pain secondary to choledocholithiasis Supportive care N.p.o. IV fluids IV Rocephin Flagyl MRCP With choledocholithiasis and cholecystitis Status post ERCP stone retrieval Intraoperatively notable for pus Acute cholecystitis Status post lap jamie Postoperative supportive care per surgery and outpatient follow-up Transaminitis suspect obstructive Avoid hepatotoxic meds Trend LFTs Repeat labs outpatient through PCP Hypertension Home medications Hyperlipidemia Home medications COPD Home medications DVT prophylaxis Full code Disposition Discharge home once cleared by surgery Admission HPI Per Admitting Provider 69 male hypertension hyperlipidemia COPD lung CA presents with nausea vomiting abdominal pain chills shortly after eating sausage at a local fair. No diarrhea. No fevers chills. No shortness of breath lightheadedness. No sick contacts or travel. He feels he may have food poisoning. On admission he is noted to have leukocytosis WBC 12.4 with a left shift. No signs of sepsis. Lipase WNL. LFTs concerning for obstructive transaminitis pattern.CT abdomen pelvis demonstrates distended gallbladder without clear stones. He received supportive care with IV fluids and antiemetics. ED physician discussed with GI on-call who requested MRCP and admission for observation. He is planning an ERCP later this afternoon. Awaiting completion of home med rec Discharge Exam GENERAL: Awake, alert, in no distress HENT: Normocephalic, atraumatic. Oropharynx with dry mucous membranes and otherwise unremarkable. EYES: Normal conjunctiva. Sclera non-icteric. NECK: Supple. No nuchal rigidity. FROM. No JVD. RESPIRATORY: Clear to auscultation. CARDIAC: Regular rate, normal rhythm. Extremities warm and well perfused. Pulses equal. ABDOMEN: Soft, non-distended. Mild epigastric tenderness without guarding or rebound. Negative Tam sign. MUSCULOSKELETAL: Chest examination reveals no tenderness. The back is symmetrical on inspection without obvious abnormality. There is no CVA tenderness to palpation. No joint edema. LOWER EXTREMITIES: Calves are equal size bilaterally and non-tender. No edema. No discoloration. NEURO: Normal sensorium. No sensory or motor deficits noted. SKIN: No rash or jaundice noted. Discharge Plan Discharge Items Patient Disposition: Home - Self-Care Reason For Visit: ABD PAIN Discharge Diagnosis: Choledocholithiasis, cholecystitis Condition on Discharge: Fair Activity: Per Instructions section Activity Comment: Avoid heavy lifting and straining Non-emergency contact: Primary Care Provider, Surgeon and Advertising Account Representative Call non-emergency contact if: you have any medication questions, your symptoms worsen, your pain is not controlled and you have a fever Follow-up/Referrals: Ramona Mackay CRNP [Primary Care Provider] - Diet: Heart Healthy, Low Fat and Low Sodium (2gm) Addtl Attending Provider Instructions: Follow-up with primary care doctor and surgeon within 1 week or as instructed Pending Studies at Discharge: No Stand-Alone Forms: My [facility], Smoking Cessation Medications and DC Order Prescriptions: New oxycodone 5 mg tablet 5 mg PO Q6 MDD 20 PRN (Reason: pain) Qty: 14 0RF ciprofloxacin HCl 500 mg tablet 500 mg PO BID Qty: 10 0RF metronidazole 500 mg tablet 500 mg PO TID 5 Days Qty: 15 0RF Continued allopurinol 100 mg tablet 200 mg PO DAILY Qty: 180 3RF Rx Instructions: pt aware dose change Breztri Aerosphere 160-9-4.8 mcg/actuation HFA aerosol inhaler 2 inh inhalation BID Qty: 240 3RF hydrochlorothiazide 25 mg tablet 25 mg PO DAILY Qty: 90 3RF metoprolol succinate 100 mg tablet extended release 24 hr 100 mg PO DAILY Qty: 90 3RF lisinopril 10 mg tablet 10 mg PO DAILY Qty: 90 3RF atorvastatin 40 mg tablet 40 mg PO DAILY Qty: 90 3RF pantoprazole 20 mg tablet,delayed release (DR/EC) 20 mg PO DAILY Qty: 30 3RF aspirin 81 mg Tablet,Delayed Release (Dr/Ec) 81 mg PO DAILY albuterol sulfate 90 mcg/actuation HFA aerosol inhaler 2 puff inhalation Q6H PRN (Reason: Shortness Of Breath Or Wheezing) Rx Instructions: INHALE 2 PUFFS BY MOUTH EVERY 6 HOURS NEEDED FOR SHORTNESS OF BREATH OR WHEEZING. colchicine 0.6 mg tablet 0.6 mg PO DIRECTED PRN (Reason: Gout Flare) Rx Instructions: 0.6 mg orally 2 at onset of gout may repeat x 1 tab; Discharge Orders: Discharge Order (Routine); Ordered 06/21/25 Ordered By: Jean-Pierre Whitfield Admission Data Admit Date/Time: 06/19/25 07:24 Attending Provider: Jean-Pierre Whitfield Admit Provider: Jean-Pierre Whitfield Primary Care Provider: Ramona Mackay Other Providers: Jean-Pierre Whitfield; Eleuterio Knox; Olivia Guerrero; Antwon Frederick; Tucker Alejandre; Abelino Catalan; Raymond Young; Mary Alice Simon; Kole Perdomo; Dawson Orozco; John Arredondo; Iván Lynn; Trav Piedra; Emily,Cyndi A Hospital Stay Data Consultations 06/19/25 06:26 ED Decision to Admit Stat 06/19/25 09:55 Consult Gastroenterology Routine 06/19/25 11:26 Consult General Surgery Routine Procedures Performed Operation Date: 06/20/25 07:30 Actual Procedures p Laparoscopic Cholecystectomy, Umbilical Hernia Repair(Not Applicable) - John Terrell DO Diagnostic Imagining Performed 06/19/25 04:04 CT abd pelvis wo con Stat 06/19/25 07:21 MR MRCP Stat 06/19/25 10:01 FL ERCP biliary ductal Routine Pending Results Patient Have Any Pending Studies at Discharge: No Discharge Instructions Given to Patient (Per Discharging Provider) Follow-up with primary care doctor and surgeon within 1 week or as instructed Total Time Total Time Spent Total Time Spent (In Minutes): 35 Coding Level of Care Code 21569 INP/OBS DISCH >30 MIN Diagnoses Transaminitis R74.01 Upper abdominal pain R10.10 History of lung cancer Z85.118 Gastroesophageal reflux disease without esophagitis K21.9 Esophagitis presence: without esophagitis
== END 2025-06-21 16:47 | disposition home or self-care (01) | DRG 419 ==
LOC: SUATTDRO → ED 02:44 → EDINP 07:24 → 3N 10:03